=== PATIENT | female | born 1995 | race Caucasian/White ===

== ENCOUNTER 2018-06-29 18:22 | Emergency (ER) | payer BC ==
--- NOTE | 2018-06-29 19:04 | EDPHY ---
H & P Time Seen by Provider: 06/29/18 18:40 HPI/ROS: CHIEF COMPLAINT: Snowboard accident, epistaxis HISTORY OF PRESENT ILLNESS: The patient is a 23-year-old female presents emergency department after having a snowboard fall earlier this morning. The patient was at [facility]. She states she caught an edge and fell back striking her posterior head. She was helmeted. She did not lose consciousness. She developed a headache and was seen at the "[facility] ER." She was kept there for a few hours and told that she had a severe concussion. Patient had an nose bleeds soon after her head strike. Bleeding was subsequently controlled. She was discharged home. Upon returning home she was sitting on the couch in developed epistaxis once again. This resolved by placing a rag on her nose. Patient continues to have a diffuse headache although it is focused on the posterior region. She has no neck pain. No vision change. No focal weakness or numbness. She has had mild nausea but no vomiting. She feels as though her head feels"heavy." REVIEW OF SYSTEMS: 10 systems were reveiwed and are negative with the exception of the elements mentioned in the history of present illness. Past Medical/Surgical History: Previous concussion Smoking Status: Never smoked Physical Exam: Vitals noted GENERAL: No acute distress, alert. HEAD: No evidence of trauma. EYES: PERRLA, EOMI, normal to inspection. ENT: Airway intact, no dental or oral injury, no malocclusion, no hemotympanum , normal external examination. The patient has no septal hematoma. There is slight irritation of her left nares medial mucosa. No active bleeding. NECK: The trachea is midline. There is no crepitus. The C-spine is nontender. NEXUS criteria is negative (no midline tenderness, no distracting injury, no altered mental status, no recent alcohol use, no focal neurologic deficit). RESPIRATORY: [Clear to auscultation bilaterally, no rales, rhonchi or wheezing. Chest wall: Normal to appearance. No crepitance or deformity. CVS: Regular rate and rhythm, no rubs, murmurs, or gallops. ABDOMEN: Soft, nontender, nondistended, no bruising or abrasions. Pelvis: Stable. No tenderness palpation. BACK: Normal to inspection, no spinal tenderness, no spinal step off, no notable bruising or abrasions. SKIN: Normal color, warm, dry. No pallor or diaphoresis. EXTREMITIES: Atraumatic, neurovascularly intact distally in all extremities, hips with full range of motion, moves all extremities freely. NEURO/PSYCH: Higher functions: Alert and Oriented x3. Normal speech and cognition. Normal mood and affect. Cranial nerves: Normal as tested. Cerebellar: Normal as tested. Good finger to nose, good [id number], normal gait. Peripheral exam: Normal motor exam. Normal sensation. Normal reflexes. Constitutional: Initial Vital Signs Temperature (C) 36.5 C 06/29/18 18:29 Heart Rate 90 06/29/18 18:29 Respiratory Rate 16 06/29/18 18:29 Blood Pressure 125/70 H 06/29/18 18:29 O2 Sat (%) 97 06/29/18 18:29 O2 Delivery Mode Room Air Allergies/Adverse Reactions: No Known Allergies Allergy (Unverified 06/29/18 18:28) Home Medications: Medication Instructions Recorded Protonix 06/29/18 traZODone 06/29/18 Medical Decision Making - Diagnostics Imaging Results: Imaging Impressions Head CT 06/29/18 19:00 Impression: Normal noncontrast CT of the brain. Results called to Dr. So Warren at 7:40 PM at the time of the interpretation. ED Course/Re-evaluation: In the emergency department I discussed possible etiologies with the patient. I answered all her questions. She was concern with ongoing headache and her multiple episodes of epistaxis. I discussed diagnostic options. Based on co- decision making a patient will have CT imaging of her head. Head CT: Please refer the dictated report. No acute disease noted. 194: I rechecked the patient while here. She had no focal neurologic deficits. She had no repeat nosebleed while here. Differential Diagnosis: My differential includes but is not limited to subarachnoid hemorrhage, subdural hematoma, epidural hematoma, basilar skull fracture, sinus fracture, epistaxis Departure - Departure Disposition: Home, Routine, Self-Care Clinical Impression: Epistaxis Head injury Qualifiers: Encounter type: initial encounter Qualified Code(s): S09.90XA - Unspecified injury of head, initial encounter Condition: Good Instructions: Nosebleed (ED), Concussion (ED) Additional Instructions: Return with increasing headache, vision change, vomiting, uncontrolled nosebleed or any other concerns. If you nose bleeds, apply the nasal clamp for at least 20 min without checking to see if it stops. Referrals: Cherry Cosby PA [Primary Care Provider] - 1-2 days without fail Stand Alone Forms: School Excuse
[2018-06-29 19:54] VITALS: BP 124/92
== END 2018-06-29 19:53 | disposition home or self-care (01) ==
DX: S09.90XA Unspecified injury of head, initial encounter (principal); R04.0 Epistaxis; V00.311A Fall from snowboard, initial encounter; Y92.828 Other wilderness area as the place of occurrence of the external cause; Y93.23 Activity, snow (alpine) (downhill) skiing, snowboarding, sledding, tobogganing and snow tubing; Y99.8 Other external cause status